=== PATIENT | male | born 1960 | race Caucasian/White ===

== ENCOUNTER 2017-07-27 10:47 | Day surgery (SDC) | payer OTHER ==
[~2017-07-27] VITALS: Ht 175.3 cm; Wt 125.8 kg
[2017-07-27 11:59] VITALS: Ht 175.3 cm; Wt 125.8 kg
[2017-07-27] MEDS ORDERED: ATEN-51 PO (12:12)
[2017-07-27] MEDS ORDERED: MELO7.5O PO (12:12)
[2017-07-27] MEDS ORDERED: LORA0.5T PO (12:12)
[2017-07-27] MEDS ORDERED: ASPI81TA3 PO (12:12)
[2017-07-27 12:28] VITALS: BP 140/81; PULSE 71; RESP 24
[2017-07-27] MEDS ORDERED: PROPOFOL 40 ML ONE (13:18)
[2017-07-27] MEDS ORDERED: LIDOCAINE 2% (SDV) 5 ML INJ ONE (13:18)
--- NOTE | 2017-07-27 13:49 | OPPN ---
Date/Time of Note Date/Time of Note DATE: 07/27/17 TIME: 13:46 3 mm polyp removed follow-up as outpatient in 2 weeks Operative Report Preoperative Diagnosis screening colonoscopy Postoperative Diagnosis 3mm polyp in descending colon scattered diverticulosis in left colon Operation/Procedure Performed Colonoscopy biopsy of polyp Surgeon see signature line library circulation assistant Saba kirkland Second assist: SABA KIRKLAND Anesthesia: MAC Estimated blood loss: none Transfusion Required none Specimen 3 mm polyp at descending colon Grafts/Implants none Complications none MATTEO HOLLIS MD Jul 27, 2017 13:49
[2017-07-27 14:01] VITALS: BP 138/81; PULSE 72; RESP 14
--- NOTE | 2017-07-28 03:48 | GILP ---
DATE OF PROCEDURE: 07/27/2017 PREOPERATIVE DIAGNOSIS: Screening colonoscopy. The patient underwent colonoscopy with anesthesia because of sleep apnea and multiple other medical conditions including obesity. PROCEDURE PERFORMED: Colonoscopy. Biopsy of a small polyp. POSTOP DIAGNOSES: 1. Few scattered diverticula in the left colon. 2. A 3-mm polyp in the descending colon, removed by biopsy forceps. The rest of the colon is normal. DESCRIPTION OF PROCEDURE: The patient was put in left lateral decubitus. After obtaining informed consent, was sedated, monitored, oximetry, EKG, blood pressure, and sedation done by the Saba Lopes CRNA. I advanced an Olympus video colonoscope all the way to the cecum. The ileocecal valve was identified. Appendiceal opening was identified. Cecum, ascending colon, and transverse colon were normal. The descending colon had a 3-mm polyp with a flat 1 noted. This was photographed and biopsied with Ana biopsy removed completely. I slowly withdrew the scope back. A few scattered small diverticula were noted in the left colon. Rectum was normal, except the inferior hemorrhoidal vein was prominent. Retroflexion was also done and was unremarkable. Upon removal of scope, the patient had no complication. RECOMMENDATION: Await for biopsy report. Continue high-fiber diet. Repeat colonoscopy in 5 years. Follow up in 2 weeks in my office and also follow up with primary MD in 4 weeks. Dictated By: Charles Jackson MD /[email or web address]/[email or web address] /Document#: [id number]
== END 2017-07-27 14:34 | disposition home or self-care (01) ==
LOC: GIL 10:47
PROVIDERS: ATTEND Internal Medicine
DX: Z12.11 Encounter for screening for malignant neoplasm of colon (principal); G47.33 Obstructive sleep apnea (adult) (pediatric); E66.9 Obesity, unspecified; Z68.41 Body mass index [BMI] 40.0-44.9, adult; K63.5 Polyp of colon
CPT/HCPCS: 45380; 88305; Z7610